=== PATIENT | female | born 1985 | race Caucasian/White ===

== ENCOUNTER → 2017-10-21 13:11 | Outpatient (CLI) | payer MEDICAID, SELFPAY ==
[2017-10-24 11:31] LABS: HPV APTIMA, High Risk Negative (Negative)
== END ==
PROVIDERS: Visit Provider Obstetrics & Gynecology
DX: Z01.419 Encounter for gynecological examination (general) (routine) without abnormal findings (principal); Z12.4 Encounter for screening for malignant neoplasm of cervix
CPT/HCPCS: 88175; G0145

== ENCOUNTER → 2020-02-18 08:47 | Outpatient (CLI) | payer BC, SELFPAY ==
[2020-02-18 13:54] LABS: Free T3 2.6 pg/mL (2.18-3.98); T4 Free Direct 0.93 ng/dL (0.76-1.46); Thyroid Stim Hormone (TSH) 2.58 uIU/mL (0.358-3.74)
[2020-02-19 10:10] LABS: Progesterone Level 17.17 ng/mL (See Comment); T3 Total - Triiodothyronine 1.08 ng/mL (0.6-1.81)
[2020-02-21 09:07] LABS: Thyroid Peroxidase AB 11 IU/mL (0-34)
[2020-02-21 11:21] LABS: Thyroglobulin Antibody < 1.0 IU/mL (0.0-0.9)
[2020-02-23 15:24] LABS: Estradiol 78.2 pg/mL
== END ==
PROVIDERS: PCP Student in an Organized Health Care Education/Training Program; Visit Provider Obstetrics & Gynecology
DX: N92.0 Excessive and frequent menstruation with regular cycle (principal); R68.82 Decreased libido; E03.9 Hypothyroidism, unspecified; N92.6 Irregular menstruation, unspecified
CPT/HCPCS: 36415; 82627; 82670; 84144; 84270; 84403; 84439; 84443; 84480; 84481; 86376; 86800; 82626

== ENCOUNTER → 2021-02-13 | Outpatient (CLI) | payer BC, SELFPAY ==
[2021-02-16 22:14] LABS: HPV APTIMA, High Risk Negative (Negative)
== END | disposition home or self-care (01) ==
LOC: LABSPEC 16:00
PROVIDERS: PCP Student in an Organized Health Care Education/Training Program; Visit Provider Obstetrics & Gynecology
DX: Z12.4 Encounter for screening for malignant neoplasm of cervix (principal)
CPT/HCPCS: 87624; 88175; G0145